=== PATIENT | male | born 1990 | race Caucasian/White ===

== ENCOUNTER 2017-08-01 19:59 | Inpatient (IN) ==
[2017-08-01] MEDS ORDERED: NORCO-10 PO ONE (20:14)
[2017-08-01 22:04] LABS: BASO% 0.3 % (0.0-0.8); EOS# 0.27 X1000 (0.0-0.7); HEMATOCRIT 43.7 % (42.0-52.0); IMM GRAN# 0.08 X1000 (0.0-0.04); IMM GRAN% 0.3 % (0.0-0.5); LYMPH# 1.82 X1000 (1.2-3.4); LYMPH% 6.7 % (20.5-51.1); MANUAL DIFF NEEDED? NO; MCH 29.9 PG (27-31); MCHC 34.3 g/dL (33-37); MCV 87.1 FL (81-99); MONO# 2.68 X1000 (0.11-0.59); MONO% 9.8 % (1.7-9.3); MPV 9.9 FL (7.4-10.4); NEUT% 81.9 % (42.2-75.2); PLT 337 X1000 (130-400); RBC 5.02 XMIL (4.7-6.1)
[2017-08-01 22:12] LABS: AGAP 12; ALKALINE PHOSPHATASE 75 U/L (32-122); BUN 7 mg/dL (8-22); CALCIUM 9.6 mg/dL (8.8-10.2); CHLORIDE 96 mmol/L (98-107); COSMO 269; GOT 10 U/L (10-34); GPT 8 U/L (10-44); POTASSIUM 3.8 mmol/L (3.5-5.1); SODIUM 135 mmol/L (136-145); TCO2 27 mmol/L (25-35); TOTAL BILIRUBIN 0.49 mg/dL (0.20-1.00); TOTAL PROTEIN 7.8 g/dL (6.3-8.3)
[2017-08-01 22:36] LABS: URINE SOURCE CLEAN CATCH
[2017-08-01 23:11] LABS: BILIRUBIN URINE NEGATIVE (NEGATIVE); BLOOD URINE MODERATE (NEGATIVE); COLOR YELLOW; GLUCOSE URINE NEGATIVE (NEGATIVE); LEUKOCYTES URINE LARGE (NEGATIVE); NITRITE URINE NEGATIVE (NEGATIVE); PH URINE 6.5; PROTEIN URINE 200 mg/dL (NEGATIVE); SP GRAVITY URINE 1.031; TURBIDITY URINE TURBID (CLEAR); URINE MICRO REVIEW NEEDED? YES; UROBILINOGEN URINE 4 mg/dL (NORMAL)
[2017-08-01 23:17] LABS: UR EPITHELIAL CELLS <10 /HPF (<10); URINE BACTERIA NEGATIVE /HPF; URINE CULTURE NEEDED? YES; URINE WBC TNTC /HPF (<10)
[2017-08-01] MEDS ORDERED: XYLOCAINE-MPF 1% INJ ONE (23:41)
[2017-08-01] MEDS ORDERED: ROCEPHIN IM ONE (23:41)
[2017-08-01] MEDS ORDERED: LEVAQUIN 500 MG/D5W 500 MG/100 ML IVPB IV ONE (23:44)
[2017-08-01] MEDS ORDERED: DOXYCYCLINE PO ONE (23:44)
[2017-08-02] MEDS ORDERED: TORADOL IV PRN (00:33)
[2017-08-02] MEDS ORDERED: ZOFRAN IV PRN (04:35)
[2017-08-02] MEDS ORDERED: NICODERM PATCH TD PRN (04:54)
[2017-08-02] MEDS ORDERED: TYLENOL PO PRN (04:54)
[2017-08-02] MEDS: ROCEPHIN 1 GM in NS 50 ML IV SCH (05:12)
[2017-08-02] MEDS: NS 1,000 ML IV SCH ×2 (05:12→15:32)
[2017-08-02] MEDS: DOXYCYCLINE PO SCH ×4 (05:13→22:23)
[2017-08-02] MEDS: NORCO-7.5 PO PRN ×4 (05:14→18:57)
[2017-08-03] MEDS: ROCEPHIN 1 GM in NS 50 ML IV SCH (00:19)
[2017-08-03 06:46] LABS: MANUAL DIFF NEEDED? NO
[2017-08-03] MEDS: NORCO-7.5 PO PRN ×4 (06:48→22:26)
[2017-08-03 06:54] LABS: BASO% 0.4 % (0.0-0.8); EOS# 0.42 X1000 (0.0-0.7); EOS% 3.1 % (0.0-10.0); HEMATOCRIT 39.5 % (42.0-52.0); HEMOGLOBIN 13.1 g/dL (14.0-18.0); IMM GRAN# 0.04 X1000 (0.0-0.04); IMM GRAN% 0.3 % (0.0-0.5); LYMPH# 2.06 X1000 (1.2-3.4); LYMPH% 15.2 % (20.5-51.1); MCH 29.4 PG (27-31); MCHC 33.2 g/dL (33-37); MCV 88.6 FL (81-99); MONO# 1.51 X1000 (0.11-0.59); MONO% 11.2 % (1.7-9.3); MPV 10.1 FL (7.4-10.4); NEUT% 69.8 % (42.2-75.2); PLT 298 X1000 (130-400); RBC 4.46 XMIL (4.7-6.1)
[2017-08-03 07:40] LABS: AGAP 12; BUN 6 mg/dL (8-22); CHLORIDE 104 mmol/L (98-107); COSMO 275; POTASSIUM 4.1 mmol/L (3.5-5.1); SODIUM 139 mmol/L (136-145); TCO2 23 mmol/L (25-35)
[2017-08-03] MEDS: DOXYCYCLINE PO SCH ×2 (08:03→22:26)
[2017-08-03 08:17] LABS: CALCIUM 8.2 mg/dL (8.8-10.2)
[2017-08-04] MEDS: ROCEPHIN 1 GM in NS 50 ML IV SCH (02:51)
[2017-08-04] MEDS: NORCO-7.5 PO PRN (02:56)
[2017-08-04 07:54] VITALS: BP 102/57
[2017-08-04] MEDS: DOXYCYCLINE PO SCH (09:15)
== END 2017-08-04 13:50 | disposition left against medical advice (07) ==
LOC: ED 19:59 → SUATTDRO 08-02 03:45 → 3N 08-02 03:45
PROVIDERS: ATTEND Emergency Medicine